=== PATIENT | male | born 1975 | race Native Hawaiian/Other Pacific Islander ===

== ENCOUNTER 2017-10-28 17:20 | Emergency (ER) | payer OTHER ==
[~2017-10-28] VITALS: Ht 170.2 cm; Wt 68.0 kg
[2017-10-28 18:40] VITALS: BP 131/89; TEMP 98.5
== END 2017-10-28 18:40 | disposition home or self-care (01) ==
LOC: ED 17:20
DX: S92.355A Nondisplaced fracture of fifth metatarsal bone, left foot, initial encounter for closed fracture (principal); W11.XXXA Fall on and from ladder, initial encounter
CPT/HCPCS: 96372; 99283; J1885